=== PATIENT | female | born 1995 | race Caucasian/White ===

== ENCOUNTER 2024-05-21 13:06 | Emergency (ER) | payer BC ==
[~2024-05-21] VITALS: Ht 160 cm; Wt 51.8 kg
[2024-05-21] MEDS ORDERED: ONDA-243 PO (14:23)
[2024-05-21] MEDS ORDERED: MECL-302 PO (14:23)
[2024-05-21] MEDS: meclizine 12.5mg tablet PO ONE (14:27)
[2024-05-21] MEDS: dexamethasone sod phosphate 10mg/ml inj PO STA (14:27)
[2024-05-21 14:34] VITALS: BP 118/71; PULSE 81; RESP 14; TEMP 98.4; O2SAT 99
== END 2024-05-21 14:36 | disposition home or self-care (01) ==
LOC: ER 13:07
DX: H83.01 Labyrinthitis, right ear (principal); H93.13 Tinnitus, bilateral; R42 Dizziness and giddiness
CPT/HCPCS: 99283; J1100; J8597

== ENCOUNTER 2024-08-12 07:01 | Emergency (ER) | payer BC ==
[~2024-08-12] VITALS: Ht 160 cm; Wt 53.2 kg
[~2024-08-12 07:01] MED LIST: MECL-302 PO; ONDA-243 PO
[2024-08-12 07:03] VITALS: BP 98/64; PULSE 89; RESP 17; TEMP 98.1; O2SAT 97
[2024-08-12] MEDS ORDERED: AMOX-101 PO (07:21)
[2024-08-12] MEDS ORDERED: PSEU-303 PO (07:21)
[2024-08-12] MEDS: amoxicillin 250mg capsule PO ONE (07:31)
[2024-08-12] MEDS: pseudoephedrine 30mg tablet PO ONE (07:53)
== END 2024-08-12 07:58 | disposition home or self-care (01) ==
LOC: ER 07:02
DX: J32.9 Chronic sinusitis, unspecified (principal); H66.92 Otitis media, unspecified, left ear; H69.82 Other specified disorders of Eustachian tube, left ear; H91.92 Unspecified hearing loss, left ear; Z79.2 Long term (current) use of antibiotics; Z79.899 Other long term (current) drug therapy
CPT/HCPCS: 99283

== ENCOUNTER 2024-09-09 07:36 | Emergency (ER) | payer BC ==
[~2024-09-09] VITALS: Ht 160 cm; Wt 52.1 kg
[~2024-09-09 07:36] MED LIST changes: +PSEU-303 PO
[2024-09-09 07:40] VITALS: BP 98/68; TEMP 99.2
[2024-09-09] MEDS: ipratropium/albuterol 3ml nebule NEB STA (10:21)
[2024-09-09 10:28] VITALS: PULSE 102; PULSE 95; RESP 16; RESP 17; O2SAT 95; O2SAT 98
[2024-09-09] MEDS ORDERED: ALBU8HFA PO (10:35)
[2024-09-09] MEDS ORDERED: BENZ-38 PO (10:51)
== END 2024-09-09 11:02 | disposition home or self-care (01) ==
LOC: ER 07:36
DX: B34.9 Viral infection, unspecified (principal); J06.9 Acute upper respiratory infection, unspecified
CPT/HCPCS: 71045; 87502; 87503; 94640; 94760; 99284

== ENCOUNTER 2024-10-05 11:39 | Outpatient (CLI) | payer BC ==
[~2024-10-05 11:39] MED LIST changes: +ALBU8HFA PO
== END 2024-10-05 23:59 | disposition home or self-care (01) ==
LOC: MRI 11:39
PROVIDERS: ATTEND Nurse Practitioner
DX: M51.16 Intervertebral disc disorders with radiculopathy, lumbar region (principal); Q76.49 Other congenital malformations of spine, not associated with scoliosis; D18.00 Hemangioma unspecified site
CPT/HCPCS: 72148

== ENCOUNTER 2024-10-07 06:48 | Outpatient (CLI) | payer BC ==
[2024-10-07 07:15] LABS: BASOPHILS % (AUTO) 0.3 % (0-1); EOSINOPHILS # (AUTO) 0.2 X10'3 (0-0.9); EOSINOPHILS % (AUTO) 3.4 % (0-6); HEMATOCRIT 37.7 % (35.0-45.0); HEMOGLOBIN 12.5 g/dl (12.0-16.0); LYMPHOCYTES # (AUTO) 2.7 X10'3 (1.1-4.8); LYMPHOCYTES % (AUTO) 42.5 % (21-51); MEAN CORPUSCULAR HEMOGLOBIN 28.5 PG (27.0-31.0); MEAN CORPUSCULAR HGB CONC 33.1 g/dL (33.0-36.5); MEAN CORPUSCULAR VOLUME 86.1 FL (78-98); MEAN PLATELET VOLUME 8.5 FL (7.4-10.4); MONOCYTES # (AUTO) 0.4 X10'3 (0-0.9); MONOCYTES % (AUTO) 6.5 % (2-12); NEUTROPHILS % (AUTO) 47.3 % (42-75); PLATELET COUNT 280 X10'3 (140-440); RED BLOOD COUNT 4.38 X10'6 (4.20-5.60); RED CELL DISTRIBUTION WIDTH 15.1 % (11.5-14.5); WHITE BLOOD COUNT 6.4 X10'3 (4.5-11.0)
[2024-10-07 07:29] LABS: ALANINE AMINOTRANSFERASE 17 U/L (12-78); ALBUMIN 3.6 G/DL (3.4-5.0); ALBUMIN/GLOBULIN RATIO 0.9 (1.1-1.5); ALKALINE PHOSPHATASE 81 IU/L (46-116); ANION GAP 11 (8-16); ASPARTATE AMINO TRANSFERASE 16 U/L (10-37); BILIRUBIN,TOTAL 0.4 MG/DL (0.1-1.0); BLOOD UREA NITROGEN 10 MG/DL (7-18); BUN/CREATININE RATIO 16.4 (10.0-20.0); CALCIUM 8.2 MG/DL (8.5-10.1); CHLORIDE 105 MMOL/L (99-107); CREATININE 0.61 MG/DL (0.40-0.90); GLUCOSE 81 MG/DL (70-104); POTASSIUM 3.7 MMOL/L (3.5-5.1); SODIUM 141 MMOL/L (135-145); TOTAL CARBON DIOXIDE 25.3 MMOL/L (24-32); TOTAL PROTEIN 7.5 G/DL (6.4-8.2); eGFR > 90 ML/MIN
[2024-10-07 07:37] LABS: CHOL/HDL RATIO 2.3 (0.00-4.99); CHOLESTEROL 154 MG/DL (0-200); HDL CHOLESTEROL 67 MG/DL (35-60); LDL CHOLESTEROL 78 MG/DL (50-100); THYROID STIMULATING HORMONE 1.56 ulU/ml (0.34-4.50); TRIGLYCERIDES 48 MG/DL (20-135)
[2024-10-09 05:26] LABS: FSH, SERUM 3.9 mIU/mL (.); LUTEINIZING HORMONE 8.6 mIU/mL (.); PROGESTERONE 3.5 ng/mL (.); TESTOSTERONE, SERUM 41 ng/dL (13-71)
== END 2024-10-07 23:59 | disposition home or self-care (01) ==
LOC: RAD 06:48
PROVIDERS: ATTEND Nurse Practitioner
DX: E34.9 Endocrine disorder, unspecified (principal); R53.83 Other fatigue; Z13.220 Encounter for screening for lipoid disorders; R79.89 Other specified abnormal findings of blood chemistry; E07.9 Disorder of thyroid, unspecified
CPT/HCPCS: 36415; 80053; 80061; 82670; 83001; 83002; 83036; 84144; 84402; 84403; 84443; 85025

== ENCOUNTER → 2024-10-20 | Outpatient (CLI) | payer BC ==
[~2024-10-20] MED LIST changes: -ALBU8HFA PO
== END | disposition home or self-care (01) ==
LOC: RAD 10:00
PROVIDERS: ATTEND Nurse Practitioner
DX: R53.83 Other fatigue (principal); R52 Pain, unspecified
CPT/HCPCS: 36415; 86038; 86140

== ENCOUNTER 2024-11-18 07:09 | Outpatient (CLI) | payer BC | END 2024-11-18 23:59 | disposition home or self-care (01) | LOC: LAB 07:09 | PROVIDERS: ATTEND Nurse Practitioner | DX: R79.89 Other specified abnormal findings of blood chemistry (principal); R52 Pain, unspecified; R76.8 Other specified abnormal immunological findings in serum; R53.83 Other fatigue | CPT/HCPCS: 36415; 82306; 82607; 82746; 85651; 86431 ==

== ENCOUNTER 2025-01-05 14:48 | Outpatient (CLI) | payer BC ==
--- NOTE | 2025-01-06 17:32 | CARDIOLOGY REPORT ---
APPROVED REPORT EXAM: Comprehensive 2D, Doppler, and color-flow Echocardiogram. Patient Location: OUT-PATIENT Blood Pressure: 101 / 53 mmHg Heart Rate: 70 bpm Rhythm: SINUS Indications CHEST PAIN KNOWN BICUSPID AV - NORMAL GRADIENTS / VELOCITIES, PER PATIENT Livestock Broker: MD Martinez NONE Previous echo: NONE AVAILABLE 2D Dimensions RVDd 2.9 cm LVOT Diameter 2.20 (1.8-2.4cm) M-Mode Dimensions Left Atrium(MM) 3.54 (2.5-4.0cm) IVSd 0.87 (0.7-1.1cm) LVDd 4.54 (4.0-5.6cm) Aortic Root 2.57 (2.2-3.7cm) PWd 0.94 (0.7-1.1cm) Aortic Cusp Exc 2.20 (1.5-2.0cm) IVSs 1.34 cm MV EPSS 0.2 (<0.5cm) LVDs 2.67 (2.0-3.8cm) FS (%) 41 % PWs 1.29 cm ESV(Teich) 26.3 ml LVEF(%) 72 (>50%) Aortic Valve AoV Peak Bhanu. 226.9 cm/s AoV VTI 44.6 cm AO Peak GR. 20.5 mmHg AO Mean GR. 10 mmHg LVOT VTI 25.54 cm LVOT Peak Bhanu. 121.0 cm/s AARON (VMAX) 2.02 cm2 AARON (VTI) 2.02 cm2 Mitral Valve MV E Velocity 104.3 cm/s MV DECEL TIME 149 ms MV A Velocity 75.9 cm/s MV PHT 64 ms E/A Ratio 1.4 MVA (PHT) 3.45 cm2 TDI E/Medial E' 5.6 Tricuspid Valve TR P. Velocity 214 cm/s RAP ESTIMATE 10 mmHg TR Peak Gr. 18 mmHg RVSP 28 mmHg Pulmonary Vein S2 Velocity 51.00 cm/s PVa [id number] msec LEFT VENTRICLE Normal LV size and wall thickness. Overall systolic function is normal. LVEF is 65-70%.GLS -21.4%. RIGHT VENTRICLE RV is normal size and function. ATRIA The left atrium size is normal. AORTIC VALVE Known bicuspid AV (three sinuses, RCC / NCC fused leaflets with raphe) appears mildly thickened witho ut stenosis or insufficiency. MITRAL VALVE Thickened MV annulus with thickened anterior leaflet (loop 32, 61) without stenosis. Trace regurgitat ion. TRICUSPID VALVE TV appears structurally normal with trace regurgitation. PULMONIC VALVE Normal PV without stenosis, physiologic insufficiency. GREAT VESSELS Aortic root is normal in size. Normal appearing arch with normal flow velocities. Ascending aorta is normal in size. PERICARDIUM Normal pericardium. No effusion. Incidental: Hyperechoic structure in liver, recommend clinical corre lation if indicated. Other Information Study Quality: Adequate Conclusion Normal LV size and wall thickness. Overall systolic function is normal. LVEF is 65-70%.GLS -21.4%. RV is normal size and function. The left atrium size is normal. Known bicuspid AV (three sinuses, RCC / NCC fused leaflets with raphe) appears mildly thickened witho ut stenosis or insufficiency. Thickened MV annulus with thickened anterior leaflet (loop 32, 61) without stenosis. Trace regurgita tion. TV appears structurally normal with trace regurgitation. Normal pericardium. No effusion. Incidental: Hyperechoic structure in liver, recommend clinical correlation if indicated.
== END 2025-01-05 23:59 | disposition home or self-care (01) ==
LOC: CARD DIAG 14:48
PROVIDERS: ATTEND Internal Medicine Cardiovascular Disease
DX: I08.8 Other rheumatic multiple valve diseases (principal); R07.9 Chest pain, unspecified
CPT/HCPCS: 93306

== ENCOUNTER 2025-01-14 08:07 | Outpatient (CLI) | payer BC ==
[2025-01-14] VITALS (21 sets, daily range): BP systolic 93–129; BP diastolic 61–83; PULSE 58–109
--- NOTE | 2025-01-15 20:41 | CARDIOLOGY REPORT ---
DATE OF SERVICE: 01/14/2025 DICTATING PHYSICIAN: ODIN Green MD CARDIAC TILT TABLE REPORT INDICATIONS: The patient is a 29-year-old female with dizziness, hypotension, and palpitation. The study was done to evaluate for cardiodepressive type of syncope. A routine tilt table protocol was followed. In supine resting condition, the patient's heart rate was 58 per minute with a blood pressure was 110/71. The patient was asymptomatic. About 10 minutes into the 70-degree tilt, the patient did complain of tunnel vision. At that time, her heart rate was 95 per minute with a blood pressure of 102/73. After 40 minutes of 70-degree tilt, the patient's heart rate was 104 per minute with blood pressure 105/73. In supine recovery condition, the patient's heart rate was 64 per minute with a blood pressure of 118/74. IMPRESSION: A 29-year-old female with cardiac tilt table findings are negative for cardiodepressive type of syncope. RECOMMENDATIONS: Recommend clinical correlation. ODIN Green MD TID: [id number] RECEIPT: [id number] ELGIN/LASHELL/ELIZABETH cc: Primary Care Physician
[2025-01-23] MEDS ORDERED: NITR100C6 PO (13:04)
[2025-01-23] MEDS ORDERED: PHEN-716 PO (13:04)
== END 2025-01-14 23:59 | disposition home or self-care (01) ==
LOC: CARD DIAG 08:07
PROVIDERS: ATTEND Internal Medicine Cardiovascular Disease
DX: R42 Dizziness and giddiness (principal); I95.9 Hypotension, unspecified; R10.2 Pelvic and perineal pain; R00.2 Palpitations
CPT/HCPCS: 93660

== ENCOUNTER 2025-01-20 07:13 | Outpatient (CLI) | payer BC ==
--- NOTE | 2025-01-20 08:33 | RADIOLOGY REPORT ---
INDICATION: UNSPECIFIED ABDOMINAL PAIN TECHNIQUE: Multiple real-time sonographic images of the abdomen were obtained. COMPARISON: None FINDINGS: Liver is homogenous in echogenicity. The liver measures 14.5 cm. No intrahepatic biliary ductal dilatation is noted. The gallbladder wall measures 0.4 cm and is unremarkable. No gallstones or gallbladder sludge. No pericholecystic fluid or edema. The common duct measures 0.4 cm and is unremarkable. The right kidney measures 10.6 cm. No hydronephrosis. The left kidney measures 11.1 cm. No hydronephr osis. The spleen measures 10.6 cm, within normal limits. The echogenicity is within normal limits. The pancreas is not well visualized due to obscuration from bowel gas. The visualized portions of the IVC and aorta are grossly unremarkable. IMPRESSION: Cholelithiasis.
--- NOTE | 2025-01-20 09:06 | RADIOLOGY REPORT ---
CLINICAL INDICATION: Chronic daily headache. COMPARISON: None TECHNIQUE: Multisequence multiplanar MRI images of the brain were obtained without contrast. FINDINGS: No acute infarct or hemorrhage. No mass or midline shift. Ventricles and sulci are within normal limits. Basal cisterns are patent. Cerebellum, brainstem, and midline structures are within no rmal limits. Paranasal sinuses are clear. Orbits are grossly unremarkable. IMPRESSION: No evidence of acute intracranial abnormality.
== END 2025-01-20 23:59 | disposition home or self-care (01) ==
LOC: RAD 07:13
PROVIDERS: ATTEND Nurse Practitioner
DX: K80.20 Calculus of gallbladder without cholecystitis without obstruction (principal); R10.9 Unspecified abdominal pain; R51.9 Headache, unspecified
CPT/HCPCS: 70551; 76700

== ENCOUNTER 2025-02-16 08:33 | Outpatient (CLI) | payer BC ==
[~2025-02-16 08:33] MED LIST changes: +NITR100C6 PO; +PHEN-716 PO
[2025-02-16 09:23] LABS: LEUKOCYTE ESTERASE ,URINE NEGATIVE (Neg); NITRITES, URINE NEGATIVE (Neg); OCCULT BLOOD,URINE NEGATIVE (Neg)
[2025-02-16 09:26] LABS: MEAN PLATELET VOLUME 9.2 FL (7.4-10.4); RED CELL DISTRIBUTION WIDTH 14.4 % (11.5-14.5)
[2025-02-16 09:28] LABS: UA COLLECTION TYPE CLN CATCH MIDSTREAM
[2025-02-16 09:54] LABS: CREATININE 0.57 MG/DL (0.40-0.90); TOTAL CARBON DIOXIDE 27.4 MMOL/L (24-32); eGFR > 90 ML/MIN
[2025-02-16 09:59] LABS: CREATININE,URINE RANDOM 9.0 MG/DL
[2025-02-16 10:23] LABS: TOTAL PROTEIN,URINE RANDOM < 6.0 MG/DL
[2025-02-17 09:15] LABS: HBSAG SCREEN Negative (Negative); HEP B CORE AB, TOT Negative (Negative); HEPATITIS C VIRUS ANTIBODY Non Reactive (Non Reactive)
[2025-02-17 11:16] LABS: COMPLEMENT C3, SERUM 102 mg/dL (82-167); COMPLEMENT C4, SERUM 15 mg/dL (12-38); THYROID PEROXIDASE AB 20 IU/mL (0-34)
[2025-02-17 13:16] LABS: ANTI-JO-1 <0.2 AI (0.0-0.9); ANTINUCLEAR ANTIBODIES Negative (Negative); RNP ANTIBODIES <0.2 AI (0.0-0.9); SMITH ANTIBODIES <0.2 AI (0.0-0.9)
== END 2025-02-16 23:59 | disposition home or self-care (01) ==
LOC: LAB 08:33
PROVIDERS: ATTEND Internal Medicine Rheumatology
DX: R76.0 Raised antibody titer (principal); Z11.59 Encounter for screening for other viral diseases; Z51.81 Encounter for therapeutic drug level monitoring; Z11.7 Encounter for testing for latent tuberculosis infection; R53.83 Other fatigue; N30.00 Acute cystitis without hematuria
CPT/HCPCS: 36415; 80053; 81003; 82570; 84156; 84439; 84443; 85025; 85651; 86038; 86140; 86146; 86147; 86160; 86200; 86235; 86256; 86376; 86704; 86706; 86803; 87340; 87522

== ENCOUNTER 2025-04-07 07:26 | Outpatient (CLI) | payer BC ==
[2025-04-07] VITALS (7 sets, daily range): BP systolic 105–129; BP diastolic 58–77; PULSE 60–137; RESP 16–18; O2SAT 100
[~2025-04-07] VITALS: Ht 160 cm; Wt 51.8 kg
[2025-04-07] MEDS ORDERED: aminophylline 250mg/10ml inj. IV ONE (08:40)
[2025-04-07] MEDS: regadenoson 0.4mg/5ml syringe IV ONE (08:45)
--- NOTE | 2025-04-07 11:19 | RADIOLOGY REPORT ---
Reason for study/Clinical History: ENCOUNTER FOR PREPROCEDURAL CARDIOVASCULAR EXAMINATION Comparison Study: None Myocardial Perfusion Study with SPECT Technique: The patient received an intravenous injection of 8.6 mCi of technetium-99m Sestamibi while at rest. After a short delay, SPECT tomographic images of the heart were obtained. The patient then went to the stress lab where they received an intravenous Lexiscan utilizing standard protocol. 35.2 mCi of technetium-99m Sestamibi was injected intravenously immediately after the start of the infusion. Gated SPECT tomographic images of the heart were acquired and processed. Findings: Rotating planar images show no significant attenuation artifact. The left ventricular size is within normal limits. Stress tomographic images demonstrate normal perfusion. Resting tomographic images demonstrate a similar pattern. Gated portion of the study shows normal wall motion and myocardial thickening. The left ventricular ejection fraction is 69%. (normal greater than 50%) Impression: Normal left ventricular size, wall motion, and function, without evidence of infarction or of myocardium at ischemic risk. The left ventricular ejection fraction is 69%.
== END 2025-04-07 23:59 | disposition home or self-care (01) ==
LOC: RAD 07:26
PROVIDERS: ATTEND Internal Medicine Cardiovascular Disease
DX: Z01.810 Encounter for preprocedural cardiovascular examination (principal); R06.00 Dyspnea, unspecified; R00.2 Palpitations
CPT/HCPCS: 78452; 93017; A9500; J0280; J2785

== ENCOUNTER 2025-04-15 05:37 | Day surgery (SDC) | payer BC ==
[2025-04-12 09:32] LABS: MEAN PLATELET VOLUME 8.9 FL (7.4-10.4); PRE OP HEMATOCRIT 38.7 % (35.0-45.0); PRE OP HEMOGLOBIN 12.8 g/dL (12.0-16.0); PRE OP PLATELET COUNT 243 X10'3 (140-440); PRE OP WHITE BLOOD COUNT 4.5 10'3 (4.8-10.8); RED CELL DISTRIBUTION WIDTH 13.7 % (11.5-14.5)
[2025-04-12 09:34] LABS: PREOP URINE HCG NEGATIVE (NEGATIVE)
[2025-04-12 09:36] LABS: LEUKOCYTE ESTERASE ,URINE NEGATIVE (Neg); NITRITES, URINE NEGATIVE (Neg); OCCULT BLOOD,URINE TRACE-INTACT (Neg)
--- NOTE | 2025-04-12 09:50 | RADIOLOGY REPORT ---
EXAM: DI CHEST,TWO VIEWS CLINICAL HISTORY: pain COMPARISON: DI CHEST,SINGLE VIEW on DOS: 09/09/24 TECHNIQUE: Frontal and lateral view of the chest was obtained FINDINGS: Lines and Tubes: None Lungs: No focal consolidation. Pleura: No effusion. No pneumothorax. Cardiomediastinal contours: Unremarkable Bones: No acute osseous abnormality. IMPRESSION: No acute cardiopulmonary disease.
[2025-04-12 09:51] LABS: UA COLLECTION TYPE VOIDED
[2025-04-12 09:52] LABS: SQUAMOUS EPITHELIAL CELL,UR MODERATE /LPF (FEW)
[2025-04-12 10:02] LABS: CREATININE 0.69 MG/DL (0.40-0.90); PRE OP ALT 17 U/L (30-65); PRE OP ANION GAP 9 (8-16); PRE OP AST 16 U/L (10-37); PRE OP BILIRUB, TOTAL 0.6 MG/DL (0.0-1.0); PRE OP GLUCOSE 89 MG/DL (70-104); PRE OP POTASSIUM 3.7 MMOL/L (3.4-5.1); PRE OP SODIUM 140 MMOL/L (135-145); TOTAL CARBON DIOXIDE 24.3 MMOL/L (24-32); eGFR > 90 ML/MIN
[~2025-04-15] VITALS: Ht 160 cm; Wt 50.4 kg
[2025-04-15] VITALS (13 sets, daily range): BP systolic 92–121; BP diastolic 47–72; PULSE 78–95; RESP 12–25; TEMP 99; O2SAT 94–99
[~2025-04-15 05:37] MED LIST changes: -MECL-302 PO; -NITR100C6 PO; +NO HOME MEDS; -ONDA-243 PO; -PHEN-716 PO; -PSEU-303 PO
[2025-04-15] MEDS: ringers solution, lacted 1,000 ML IV SCH (06:33)
[2025-04-15] MEDS: ceFOXitin 2GM-NS 100mL ADDvant 100 ML IV ONE (06:34)
[2025-04-15] MEDS ORDERED: BUPIVAcaine 2.5mg/ml inj 50ml vial (contains preservative) ONE (06:50)
[2025-04-15] MEDS ORDERED: vasoPRESSIN 20 units/ml inj. ONE (06:51)
[2025-04-15] MEDS ORDERED: clindamycin phosphate 40gm vag cream ONE (06:55)
[2025-04-15] MEDS ORDERED: midazolam 1 mg/ML 2ml injection ONE ×2 (07:20→07:28)
[2025-04-15] MEDS ORDERED: fentaNYL/PF 50MCG/1 ML 2ML syringe ONE (07:27)
[2025-04-15] MEDS ORDERED: propofol inj 20 ML IV ONE (07:43)
[2025-04-15] MEDS ORDERED: rocuronium 10mg/ml inj IV ONE ×2 (07:43)
[2025-04-15] MEDS ORDERED: labetalol 20mg/4ml (5mg/ml) syringe IV PRN (08:00)
[2025-04-15] MEDS ORDERED: ondansetron/PF 4mg/2ml inj IV PRN (08:00)
[2025-04-15] MEDS ORDERED: hydrALAZINE 20mg/ml inj. IV PRN (08:00)
[2025-04-15] MEDS ORDERED: ringers solution, lacted 1,000 ML IV SCH (08:00)
[2025-04-15] MEDS ORDERED: dexamethasone sod phosphate 4mg/ml inj. ONE (09:26)
[2025-04-15] MEDS ORDERED: acetaminophen 1,000mg/100ml IV 100 ML IV ONE (09:26)
[2025-04-15] MEDS ORDERED: ondansetron/PF 4mg/2ml inj ONE (09:26)
[2025-04-15] MEDS: morphine 4 MG/ML inj SYRINge IV PRN (10:28)
[2025-04-15] MEDS ORDERED: morphine 4 MG/ML inj SYRINge IV PRN (10:33)
[2025-04-15] MEDS: ketorolac trometh 30MG/ML vial 30 MG/ML VIAL IV ONE (10:34)
[2025-04-15] MEDS: HYDROmorphone/PF 0.2 MG/ML SYRINGE IV PRN ×2 (10:36→10:58)
--- NOTE | 2025-04-15 10:45 | OPERATIVE REPORT ---
DATE OF SURGERY: 04/15/2025 DICTATING PHYSICIAN: Leander Falcon MD PREOPERATIVE DIAGNOSES: Chronic dysmenorrhea, pelvic pain, and menorrhagia. POSTOPERATIVE DIAGNOSES: Chronic dysmenorrhea, pelvic pain, and menorrhagia. SURGEON: Leander Falcon MD UTILITY MECHANIC: TURNER Harry, surgical aide. ANESTHESIOLOGIST: Dr. Martel. ANESTHESIA: General. PROCEDURES: Laparoscopic-assisted vaginal hysterectomy with bilateral salpingectomy and preservation of the ovaries. Lysis of adhesions. ESTIMATED BLOOD LOSS: 50 mL. COMPLICATIONS: None. INDICATIONS: The patient is a 30-year-old multigravida female with chronic severe worsening dysmenorrhea, menorrhagia, and pelvic pain, unresponsive to conservative management. The patient no longer desired fertility and strongly desired the above procedures. FINDINGS: Slightly enlarged uterus. Grossly normal-appearing tubes and ovaries bilaterally. Omental adhesions extending to the anterior abdominal wall with a single thick strand. Grossly normal-looking appendix. No other pelvic masses or evidence of pelvic endometriosis. TECHNIQUE: The patient was taken to the OR where general anesthesia was found to be adequate. She was placed in a dorsal lithotomy position. She was prepped and draped in the usual sterile fashion. The cervix was infiltrated with a dilute solution of vasopressin and a BECKY manipulator was placed transcervically and secured in the usual fashion. A transurethral catheter was placed. At this point, we changed gloves and proceeded to the laparoscopic procedure. A Veress needle was introduced to the umbilicus and the abdomen was insufflated with CO2 gas to 15 mmHg. The Veress needle was removed and a 5 mm trocar was placed through the umbilicus. A laparoscope was introduced and the patient was placed in Trendelenburg position. Two additional ports were placed including a 5 mm port at the right lower quadrant and an 8 mm port at the left lower quadrant. The pelvic organs were inspected with findings as noted above. The strand of adhesions was coagulated and divided at the anterior abdominal wall and the omentum was freed up in this fashion. The right fallopian tube was tented up at this time and the mesosalpinx was coagulated and divided with assistance of the LigaSure device. The utero-ovarian ligament was similarly identified, coagulated, and divided. At this point, the right round ligament was coagulated and divided with the LigaSure device and the incision was extended inferiorly along the anterior and posterior leaves of the broad ligament to the level of the cardinal ligaments. The right uterine vessels were identified, coagulated, and divided. The entire procedure was then duplicated on the left aspect. The vesicouterine peritoneum was identified and sequentially transversely in its entirety coagulated and divided. The bladder was dissected off bluntly exposing the cervix. Anterior and posterior colpotomies were then performed sequentially with application of monopolar coagulating current through a monopolar spatula over the cup of the BECKY manipulator sequentially. The CO2 gas was allowed to egress and we proceeded to the vaginal aspect of the surgery. The BECKY manipulator was removed. Anterior and posterior transvaginal wall retractors were placed. The cervix was placed under traction and the uterosacral ligaments were sequentially and bilaterally clamped, cut, and suture ligated with 0 Vicryl sutures. In this fashion, the entire specimen was amputated and extracted transvaginally as a single unit. The vaginal cuff was reapproximated with multiple [id number] of 0 Vicryl. The vaginal epithelium was closed in a similar fashion. At this point, we proceeded to the final laparoscopic inspection. We changed gloves again. The abdomen was insufflated with CO2 gas to 15 mmHg. The laparoscope was introduced. The vaginal cuff was inspected. Minimal oozing was noted, which was contained with application of VISTASEAL. All pedicles were now completely hemostatic. A solution of Marcaine and saline was freely sprayed over the dome of the liver. The CO2 was allowed to egress, no bleeding was noted. The trocars were removed. The skin incisions were sequentially closed subcuticularly with 4-0 Vicryl sutures and sealed off with Dermabond. Sponge, lap, instrument, and needle counts reported correct. COMPLICATIONS: None. PATHOLOGY: Uterus with attached cervix and fallopian tubes. DISPOSITION: The patient was taken to the recovery room in stable condition. Leander Falcon MD TID: [id number] RECEIPT: [id number] GHASSAN/TANYA
--- NOTE | 2025-04-16 12:41 | PATHOLOGY REPORT ---
[facility] [address] [place] [address] SURGICAL PATHOLOGY REPORT CaseNumber: [id number] Surgeon:Leander Falcon M.D. CLINICAL INFORMATION CLINICAL INFORMATION: Excessive bleeding. DIAGNOSIS DIAGNOSIS: UTERUS, BILATERAL FALLOPIAN TUBES; HYSTERECTOMY CERVIX: - BENIGN ENDOCERVIX AND SQUAMOUS MUCOSA. ENDOMETRIUM: - BENIGN INACTIVE ENDOMETRIUM. MYOMETRIUM: - FOCAL ADENOMYOSIS. SEROSA: - NO SIGNIFICANT PATHOLOGIC ABNORMALITY. BILATERAL FIMBRIATED FALLOPIAN TUBES: - PARATUBAL CYST, 1.1 CM. - ADHESIONS. MICROSCOPIC DESCRIPTION MICROSCOPIC DESCRIPTION: 7 H&E-stained slides are examined. The section of cervix shows benign ectocervical mucosa and reactive endocervical mucosa with squamous metaplasia; there is no evidence of dysplasia. The endometrium appears inactive. I do not see glandular crowding, or plasma cells. Focal adenomyosis is present. The left fimbriated fallopian tube shows multiple submillimeter cystic Walthard's rests and focal fibrinous adhesions. The right fallopian tube shows a benign paratubal cyst. The uterine serosa shows no significant histopathologic abnormalities. GROSS DESCRIPTION GROSS DESCRIPTION: Received in a container of formalin labeled with the patient's name, number, and "uterus and bilateral fallopian tubes" is a 112 gram uterus with attached cervix and detached bilateral fallopian tubes. The uterine corpus measures 5 x 6 x 4 cm. The attached cervix measures 4 cm long by 3 cm in diameter. The cervical os is multiparous. The serosa is somewhat roughened and pink-spears. Sectioning reveals a red-spears endometrium which measures up to 0.2 cm and a 0.5 cm nodule. Sectioning the myometrium fails to reveal further areas of nodularity. The myometrium is trabeculated and measures up to 1.7 cm thick. Sectioning the cervix reveals crawford-white mucosa without areas of ulceration. Th e left fallopian tube measures 8.5 cm long by 0.7 cm in diameter. The fallopian tube is unremarkable. The right fallopian tube measures 8.5 cm long by 0.7 cm in diameter with a 1.1 cm paratubal cyst containing a clear, colorless, watery fluid. Sections are submitted as follows:A1) CervixA2-A3) Endo and myometriumA4) Subserosal noduleA5) Left fallopian tubeA6) Right fallopian tubeA7) SerosaThe time at which the specimen was removed was 0850. The time at which the specimen was placed in formalin was 0855. ([facility]) Electronically signed by: Edgar Badillo, 04/16/2025 12:03:00 PM
== END 2025-04-15 11:19 | disposition home or self-care (01) ==
LOC: PAS 05:37
PROVIDERS: ATTEND Obstetrics & Gynecology Obstetrics
DX: N94.6 Dysmenorrhea, unspecified (principal); N92.0 Excessive and frequent menstruation with regular cycle; N80.03 Adenomyosis of the uterus; N83.8 Other noninflammatory disorders of ovary, fallopian tube and broad ligament; Z98.891 History of uterine scar from previous surgery; Z98.890 Other specified postprocedural states; Z91.040 Latex allergy status
CPT/HCPCS: 36415; 71046; 80053; 81001; 81025; 82948; 85025; 86885; 86900; 86901; A4314; A4618; A7000; C9250; J0131; J0694; J1100; J1171; J1885; J2250; J2270; J2405; J2704; J3010; J3490; J7120

== ENCOUNTER 2025-07-13 10:14 | Emergency (ER) | payer BC ==
[~2025-07-13] VITALS: Ht 160 cm; Wt 50.5 kg
--- NOTE | 2025-07-13 10:29 | Physician Documentation ---
History of Present Illness ~ Chief Complaint: Urinary Symptoms Stated Complaint: RIGHT SIDED FLANK PAIN Time Seen by MD: 10:25 Primary Medical Doctor: LUZ HPI 30-year-old female presents to the ED after having four days of right flank pain burning urination frequency and occasional chills. He has any fevers she suspects that she has a UTI has she typically presents with the these type of symptoms.. Denies any history of kidney stones states she has a hysterectomy therefore she does not have menstrual cycles Day of Onset: Jul 13, 2025 Medication Reconciliation Allergies: Coded Allergies: latex (Verified Allergy, Intermediate, RASH, 04/14/25) Scheduled Cephalexin*Monohydrate* (Keflex*), 1 CAP PO QID Miscellaneous Medications Home Med List (No Home Medications), (Reported) Past Medical History Past Medical History: No Pertinent History Past Surgical History: no surgical history Drug Use: none Lives In: Home Review of Systems All Other Systems at this time: Reviewed and Negative ROS As stated above in the HPI, otherwise all systems are reviewed and negative. Physical Exam Vital Signs: Temperature: 98.2, Source: Oral, Heart Rate: 70, Respiratory Rate: 16, BP: 115/79, Pulse Oximetry: 99, Weight: 50.500 Oxygen Flow Rate: 0 Progress Results/Orders Results/Orders Orders - GREGORIO WADDELL SENIOR SOFTWARE QA ENGINEER Phenazopyridine Tablet (Pyridium Tablet) (07/13/25 10:55) Cephalexin Capsule (Keflex Capsule) (07/13/25 10:55) Vital Signs 07/13/25 10:18 Temp 98.2 Pulse 70 Resp 16 B/P (MAP) 115/79 Pulse Ox 99 O2 Flow Rate 0 Laboratory Tests Test 07/13/25 10:21 Urine Specimen Description Cln catch midstream Urine Color Yellow Urine Clarity Slightly cloudy Urine pH 6.0 Urine Specific [place] 1.020 Urine Protein Negative Urine Glucose (UA) Negative Urine Ketones 40 H Urine Occult Blood Negative Urine Nitrite Negative Urine Bilirubin Negative Urine Urobilinogen 1.0 Urine Leukocyte Esterase Negative Urine RBC 0-2 Urine WBC 5-10 H Urine WBC Clumps Few Urine Squamous Epithelial Cells Few Urine Bacteria Few Urine Culture Indicated Indicated Volume Urine Centrifuged 10 ml Urine HCG, Qualitative Negative Urine Comment Medical Decision Making Additional information obtaine: old records Findings Going to treat this patient empirically for a UTI. Do not see any signs of hematuria or any other clinical indications that would require further imaging for potential kidney stone. Urinary Diff Dx:Considerations: Include: AAA, , Aortic dissection, Appendicitis, Bowel obstruction, Cholelithiasis, Choleangitis, DJD, Ectopic , Hepatitis, HNP, Impaction, Intrauterine , Musculoskeletal pain, Ovarian torsion, Pancreatitis, PID, Post-Op complication, Pyelonephritis, Renal failure, Strain, Urinary Obstruction, Urolithiasis, Urinary retention, UTI, Vaginitis, Other Genital Diff Dx:Considerations: Unlikely: -Complete, - Incomplete, -Inevitable, Ablortion-Missed, -Threatened, Abruptio placentae, Bartholin abscess, Bartholin cyst, Blood loss anemia, Constipation, Cervicitis, Dsymenorrhea, Ectopic , Foreign body, Hormonal, Hidradenitis suppurativa, Intrauterine , Menorrhagia, Menometrorrhagia, Menstrual bleeding, Myomatous uterus, Perianal abscess, Physiologic discharge, Pinworms, PID, Placenta previa, , Precipitous Hct, Trauma, UTI, Vaginitis(osis)-Atrophic, Vaginitis, Vaginitis(osis)-Bacterial, Vaginitis(osis)- Candidal, Vaginitis(osis)-Contact, Vaginitis(osis)-Herpes, Vaginitis(osis)- Trich., Other Departure Disposition: 01 HOME / SELF CARE / HOMELESS Impression: Primary Impression: Acute urinary tract infection Discharge Instructions: Urinary Tract Infection, Adult Referrals: NO PRIMARY CARE PROVIDER (PCP) Prescriptions Cephalexin*Monohydrate* (Keflex*) 500 Mg Capsule 1 CAP PO QID, #40 CAP Prov: GREGORIO WADDELL NP 07/13/25 Education Educated: Patient Signature Scribe Signature: j Attestation: Scribed for Gregorio Waddell Np by Gregorio Ureña NP . 07/13/25 10:52 GREGORIO WADDELL NP Jul 13, 2025 10:29
[2025-07-13 10:33] LABS: LEUKOCYTE ESTERASE ,URINE NEGATIVE (Neg); OCCULT BLOOD,URINE NEGATIVE (Neg); URINE HCG NEGATIVE (NEG)
[2025-07-13 10:42] LABS: UA COLLECTION TYPE CLN CATCH MIDSTREAM
[2025-07-13 10:43] LABS: NITRITES, URINE NEGATIVE (Neg)
[2025-07-13 10:44] LABS: SQUAMOUS EPITHELIAL CELL,UR FEW /LPF (FEW); WBC CLUMPS,URINE FEW /HPF (NEGATIVE)
[2025-07-13] MEDS ORDERED: CEPH-585 PO (10:52)
[2025-07-13] MEDS: phenazopyridine 100mg tablet PO ONE (11:38)
[2025-07-13 11:39] VITALS: BP 110/80; PULSE 71; RESP 16; TEMP 98.3; O2SAT 100
== END 2025-07-13 11:40 | disposition home or self-care (01) ==
LOC: ER 10:14
DX: N39.0 Urinary tract infection, site not specified (principal); Z91.040 Latex allergy status; Z90.710 Acquired absence of both cervix and uterus
CPT/HCPCS: 81001; 81025; 87088; 99283